=== PATIENT | female | born 1955 | race African-American/Black ===

== ENCOUNTER 2017-03-27 16:48 | Emergency (ER) | payer OTHER ==
[2017-03-27 17:35] LABS: BASOPHILS % 0.6 (0.0-1.5); EOSINOPHILS % 4.5 % (0.0-6.8); MEAN CORPUSCULAR HEMOGLOBIN 30.6 pg (28.0-34.0); MEAN CORPUSCULAR VOLUME 92.2 fl (80.0-100.0); MONOCYTES % 5.1 % (0.0-11.0); NEUTROPHILS # 4.3 # k/uL (1.4-7.7)
[2017-03-27 17:44] LABS: eGFR (African) > 60; eGFR (Non-African) > 60
--- NOTE | 2017-03-27 18:03 | ED Physician Documentation ---
Syncope/Near Syncope - HISTORIAN Historian: patient - HPI Stated Complaint: dizzy Chief Complaint: Near Syncope Witnessed: Yes Witnessed By: bystander Position at Time of Episode: standing Symptoms Prior to Episode: light-headed Character of Events(s): almost passed out Symptoms after Event: denies: confused after event, incontinent of urine, incontinent of stool Location of Injury: none Associated Symptoms: none Further Comments: yes (61 year old female patient brought in via [facility], near syncopal episode at [facility]. Patient states is was very hot where she working, over 100degrees. Became dizzy, staff took her blood pressure, SBP > 200. Patient denies SOB or CP with episode.) - ROS CONST: denies: recent illness EYES/ENT: none GI/: denies: diarrhea, problems urinating MS/SKIN/LYMPH: denies: joint pain, leg swelling, rash, swollen glands, ankle swelling NEURO/PSYCH: denies: confusion - PAST HX Cardiac Disease: other (HTN) PE Risk Factors: hypertension Other History: Other (depression) Allergies/Adverse Reactions: Allergies Allergy/AdvReac Type Severity Reaction Status Date / Time No Known Drug Allergies Allergy Unverified 05/18/13 13:40 Home Medications: Ambulatory Orders Medication Instructions Recorded Amitriptyline HCl [Elavil] 10 mg PO 2 @HS u2 05/18/13 Candesartan/Hydrochlorothiazid 1 each PO DAILY u2 05/18/13 [Atacand Hct 32-12.5 Mg Tab] Amitriptyline HCl [Amitriptyline 10 mg PO TID 03/27/17 HCl] Diltiazem HCl [Diltiazem 24Hr Cd] 120 mg PO DAILY 03/27/17 - SOCIAL HX Smoking History: non-smoker - FAMILY HX Family History: denies: none - VITAL SIGNS Vital Signs: Vital Signs Temp Pulse Resp BP Pulse Ox 98.7 F 90 22 143/77 98 03/27/17 16:48 03/27/17 18:35 03/27/17 18:35 03/27/17 18:35 03/27/17 18:35 - REVIEWED ASSESSMENTS Nursing Assessment Reviewed: Yes Vitals Reviewed: Yes Progress - Progress Progress: Reviewed lab and EKG finding with patient. encouraged rest. Patient concerned about going back to work with hot temperatures this week. Reviewed discharge instructions, questions answered. - EKG/XRAY/CT EKG: NSR (rate 91, no acute changes) ED Results Lab/Radiology - Lab Results Lab Results: Lab Results 03/27/17 03/27/17 17:20 17:20 WBC 9.00 K/ul K/ul (4.00-12.00) RBC 4.09 M/ul M/ul (3.90-5.20) Hgb 12.5 g/dL g/dL (12.0-16.0) Hct 37.7 % % (34.5-46.5) MCV 92.2 fl fl (80.0-100.0) MCH 30.6 pg pg (28.0-34.0) MCHC 33.2 g/dL g/dL (30.0-36.0) RDW 13.3 % % (11.3-14.3) Plt Count 294 K/mm3 K/mm3 (130-400) Neut % (Auto) 47.8 % % (39.0-79.0) Lymph % (Auto) 39.6 % % (16.0-50.0) [place] % (Auto) 5.1 % % (0.0-11.0) Eos % (Auto) 4.5 % % (0.0-6.8) Baso % (Auto) 0.6 (0.0-1.5) Neut # (Auto) 4.3 # k/uL # k/uL (1.4-7.7) Lymph # (Auto) 3.6 # k/uL # k/uL (0.6-4.0) [place] # (Auto) 0.5 # k/uL # k/uL (0.0-0.9) Eos # (Auto) 0.4 # k/uL # k/uL (0.0-0.6) Baso # (Auto) 0.0 # k/uL # k/uL (0.0-0.5) Reactive Lymphs % 2.3 % % (0.0-5.0) Reactive Lymphs # 0.2 # k/uL # k/uL (0.0-0.8) Sodium 139 mmol/L mmol/L (137-145) Potassium 3.3 mmol/L L mmol/L (3.5-5.1) Chloride 107 mmol/L mmol/L (98-107) Carbon Dioxide 25 mmol/L mmol/L (22-30) BUN 19 mg/dL H mg/dL (7-17) Creatinine 0.70 mg/dL mg/dL (0.52-1.04) Estimated Creat Clear 221 Est GFR ( Amer) > 60 (60 - ) Est GFR (Non-Af Amer) > 60 (60 - ) Glucose 97 mg/dL mg/dL (74-106) Calcium 8.9 mg/dL mg/dL (8.4-10.2) Total Bilirubin < 0.2 mg/dL L mg/dL (0.2-1.3) AST 18 U/L U/L (15-46) ALT 27 U/L U/L (13-69) Alkaline Phosphatase 85 U/L U/L (38-126) Total Protein 6.8 g/dL g/dL (6.3-8.2) Albumin 3.4 g/dL L g/dL (3.5-5.0) - Orders Orders: ED Orders Category Date Time Status Continuous EKG monitoring Q30M Care 03/27/17 16:59 Active Continuous Pulse Oximetry Q30M Care 03/27/17 16:59 Active CBC/PLATELET/DIFF Stat Lab 03/27/17 17:20 Completed CMP Stat Lab 03/27/17 17:20 Completed UA W/MICRO IF INDICATED Stat Lab 03/27/17 16:59 Ordered EKG WITH COMPARISON Stat Ther 03/27/17 16:59 Ordered Syncope Physical Exam - Physical Exam General Appearance: mild distress EENT: nml eye inspection, PERRL, nml ENT inspection, no apparent trauma, pharynx nml, no CSF leak Respiratory: no resp distress, chest non-tender, breath sounds normal CVS: reg rate & rhythm, heart sounds normal, equal pulses, no murmur, no gallop , PMI nml, no JVD, no friction rub, 24 Abdomen: non-tender, no organomegaly, nml bowel sounds, no distention Skin: normal color, warm/dry, NR, INT, PAL, DR Extremities: non-tender, normal range of motion, no evidence of injury, no edema , J, METAL TECHNICIAN - Neuro/Psych Higher Functions: alert, oriented x3, no evidence of acute CVA, mood/affect nml Cranial Nerves: nml as tested Cerebellar: nml as tested, nml gait Sensorimotor: nml motor response, nml sensory response, nml reflexes, nml gait Discharge Clincal Impression: Near syncope, Dizziness Referrals: Patricia Haider MD [Primary Care Provider] - 2 Days Additional Instructions: Rest - in a cool place this afternoon Drink 1-2 bottles of Gatorade or PowerAde. Increase your fluid intake - at least 64 oz of water daily. Follow up with your primary care doctor if you have any further dizziness. Condition: Stable Disposition: 01 HOME, SELF-CARE Decision to Admit: NO Decision Time: 18:03
[2017-03-27 18:37] VITALS: BP 143/77
== END 2017-03-27 18:20 | disposition home or self-care (01) ==
LOC: ED 16:48
DX: R55 Syncope and collapse (principal); R42 Dizziness and giddiness
CPT/HCPCS: 80053; 85025; 99283